=== PATIENT | male | born 1965 | race Caucasian/White ===

== ENCOUNTER → 2019-02-07 06:26 | Outpatient (CLI) | payer BC, SELFPAY ==
[2019-01-31 09:25] VITALS: BMI 35.5
--- NOTE | 2019-02-07 17:40 | STRESSREP ---
Stress Test Report Exercise myocardial perfusion stress test. 53-year-old man with a history of chest pain and palpitations. Stress protocol: Resting EKG demonstrates normal sinus rhythm with a rate of 68 bpm normal intervals are noted resting blood pressures 132/84 mmHg. The patient exercised according to regular Reed protocol for a total duration of 4 minutes and 38 seconds. The maximum heart rate attained was 200 bpm which appeared to be in atrial flutter with a 2-1 block. The maximum heart rate was noted to be 119% of maximum predicted heart rate. The patient appeared to have gone into what appears to be a rate dependent bundle branch block at a rate of approximately 99 bpm. He then maintained this rhythm patent until about 4-1/2 minutes into the exercise when the rate appeared to accelerate to 200 bpm. This appeared to be in atrial flutter with a 2-1 block or supraventricular tachycardia. The rate then slowly declined to a sinus rhythm with a rate of 99 bpm with occasional premature ventricular complex. During recovery it was noted to be a narrow complex with a rate of 90 bpm. Patient did not experience any chest discomfort but felt the palpitations. The resting blood pressure was 132/84 mmHg with a final blood pressure 126/70 mmHg. Myocardial perfusion protocol. 11.7 mCi of technetium 99m sestamibi was injected at rest. The patient exercised according to regular Reed protocol as noted above for 4 minutes and 38 seconds at peak exercise 33.8 mCi of technetium 99m sestamibi was injected stress images were obtained stress and rest images were reconstructed in comparing the short axis vertical and horizontal long axis gated images were also obtained Perfusion SPECT analysis: Review of the stress images demonstrate normal uptake of tracer noted in all areas of the myocardium. The resting images similarly demonstrate normal uptake of tracer noted in all areas of myocardium. No reversibility is noted suggest ischemia Gated SPECT analysis: The gated ejection fraction is noted to be 49%. Conclusion: Exercise stress test with no EKG criteria for ischemia. Rate dependent bundle branch block conduction system abnormality noted likely secondary to flecainide Atrial flutter with a 2-1 block noted to spontaneously converting. No ischemia present.
== END ==
PROVIDERS: Family Provider Family Medicine; PCP Family Medicine; Referring Provider Internal Medicine Cardiovascular Disease; Visit Provider Internal Medicine Cardiovascular Disease
DX: I48.91 Unspecified atrial fibrillation (principal); R07.9 Chest pain, unspecified
CPT/HCPCS: 78452; 93017; A9500; A4216

== ENCOUNTER → 2019-05-15 08:47 | Outpatient (CLI) | payer BC, SELFPAY ==
[2019-04-26 15:48] VITALS: BMI 36.4
== END ==
PROVIDERS: Family Provider Family Medicine; PCP Family Medicine; Referring Provider Internal Medicine Cardiovascular Disease; Visit Provider Internal Medicine Cardiovascular Disease
DX: I44.39 Other atrioventricular block (principal); I43 Cardiomyopathy in diseases classified elsewhere; I48.91 Unspecified atrial fibrillation; R00.2 Palpitations
CPT/HCPCS: 93225; 93226